=== PATIENT | male | born 1975 | race Caucasian/White ===

== ENCOUNTER 2016-05-17 09:27 | Outpatient (CLI) | payer OTHER ==
--- NOTE | 2016-05-17 12:12 | DIAGNOSTIC IMAGING REPORT ---
PROCEDURE: MR CERVICAL SPINE W/O CONT INDICATION: CHRONIC NECK PAIN TECHNIQUE: Noncontrast T1, T2, and STIR sagittal images. T2 and gradient axial images. COMPARISON: None. FINDINGS: C1-2: Normal. C2-3: Normal. C3-4: Normal. C4-5: The spinal canal is narrow at this C5-6: There is a herniated nucleus pulposus at C5-6 on the right. This is impinging on the foramen on the right. There is also a spondylosis at this level with disc bulge anteriorly and hypertrophy of the ligamentum flow posteriorly. C6-7: Normal. C7-T1: Normal. IMPRESSION: 1. Spondylosis and herniated nucleus pulposus C5-6 on the right.
== END 2016-05-17 23:00 ==
LOC: MRI SRH 09:27
DX: M47.812 Spondylosis without myelopathy or radiculopathy, cervical region (principal); M50.222 Other cervical disc displacement at C5-C6 level